=== PATIENT | male | born 1995 | race Caucasian/White ===

== ENCOUNTER 2025-01-18 09:47 | Emergency (ER) | payer OTHER, SELFPAY ==
[2025-01-18 09:58] VITALS: BP 133/74; PULSE 70; RESP 16; TEMP 36.6; O2SAT 98; BMI 25.8
--- NOTE | 2025-01-18 12:02 | ED_ITS ---
HPI - Extremity Injury (Lower) General Chief Complaint: Extremity Injury, Lower Stated Complaint: patient states has a Callus on left heel Time Seen by Provider: 01/18/25 11:58 History of Present Illness ED Provider: Bunny Serrano MD HPI Narrative: 29 M tells me that he is a mail distributor walks a lot and has had pain in the posterior calcaneal region where he initially had a callus that he then says turned to a blister. He tells me that recently his girlfriend? cut down? the blister and he is having ?stabbing? pain. No fever no direct blow or injury. No prior foot surgeries. Related Data Allergies Allergy/AdvReac Type Severity Reaction Status Date / Time No Known Allergies Allergy Unverified 01/18/25 15:23 [facility] Social History Social History (System 01/18/25 @ 15:23 by Gladis Velazquez) Advance Directives: No Advance Directives Information Provided: Yes Do you have a plan to hurt others: No Plan Physical Exam Exam: Exam: GENERAL: Well appearing. No apparent distress. Alert. HEAD/NECK: No visual trauma. EYES: Normal to inspection. No conjunctival erythema. No discharge. ENMT: Hearing grossly normal. External nose normal. RESPIRATORY: Respiratory effort normal. CARDIOVASCULAR: Additional details (Grossly well perfused). SKIN: No jaundice. NEUROLOGICAL: Alert. Moving all extremities x4. Additional details (No gross motor deficits. Normal tone. ). PSYCHIATRIC: Alert. Appearance appropriate for situation. __ Left calcaneal region with about 2 x 1 cm whitish thickened skin consistent with callus. Minimally tender there was no surrounding erythema or expressible discharge. No focal bony tenderness of the calcaneus. Adjacent to this slightl y more medial in the calcaneal region is mild chronic appearing callus with ulceration. No exposed granulation or deeper tissues. No expressible purulence or discharge. Vital Signs: Vital Signs: Last Vital Signs Temp 98 F 01/18/25 12:33 Pulse 70 01/18/25 12:33 Resp 16 01/18/25 12:33 BP 133/74 01/18/25 12:33 Pulse Ox 98 01/18/25 12:33 O2 Del Method Room Air 01/18/25 12:33 BMI result Body Mass Index 25.8 Medical Decision Making Medical Decision Making MDM Narrative: 29-year-old male with tender painful callus in the left posterior calcaneus. No indication for x-ray or advanced imaging. No clinical suggestion for bony injury, infection, fistula or other emergent medical process. I offered to provide a cushioned iodoform gauze until the patient could follow up with Podiatry but he declined this. After our discussion he was upset and swore at me. Told me ?youre doctor you need to fix this ?and subsequently left the emergency department without receiving discharge paperwork. Discharge Plan Discharge Clinical Impression: Callus Patient Disposition: Home, Self-Care Stand Alone Forms: Work/School Release Interventions: ED Discharge Assessment Last Done: 01/18/25 12:33 Discharge Date/Time: 01/18/25 12:34 Print Language: Filipino
--- NOTE | 2025-01-18 12:31 | PC.NURSE ---
patient in [facility], had small blister on foot, no d/c redness or swelling noted. patient witnessed to be swearing and confrontational with ED provider regarding plan of care. patient then ambulated off unit with steady gait, did not want dc papers.
[2025-01-18 12:33] VITALS: BP 133/74; PULSE 70; RESP 16; TEMP 36.6; O2SAT 98
== END 2025-01-18 12:34 | disposition home or self-care (01) ==
PROVIDERS: Emergency Provider Emergency Medicine
DX: L84 Corns and callosities (principal)
CPT/HCPCS: 99282